=== PATIENT | male | born 1960 | race Caucasian/White ===

== ENCOUNTER → 2017-06-24 11:17 | Outpatient (CLI) | payer BC, SELFPAY ==
[2017-06-24 12:31] LABS: Basophils % 0.4 % (0.1-2.0); Eosinophils # 0.1 K/mm3 (0.0-0.4); Hematocrit 50.6 % (42.0-52.0); Hemoglobin 17.1 g/dL (14.1-18.0); Lymphocytes # 1.9 K/mm3 (0.7-4.5); Lymphocytes % 18.8 K/mm3 (10-50); Mean Corpuscular HGB Conc 33.9 g/dL (31.8-35.4); Mean Corpuscular Hemoglobin 30.1 pg (27.0-31.2); Mean Platelet Volume 8.7 fl (7.4-10.4); Monocytes # 0.4 K/mm3 (0.1-1.0); Monocytes % 3.4 % (1.7-9.3); Neutrophils # 7.7 K/mm3 (1.8-7.8); Neutrophils % 76.4 % (37.0-80.0); Platelet Count 219 K/mm3 (142-424); Red Blood Count 5.69 M/mm3 (4.60-6.20); Red Cell Distribution Width 12.6 % (11.5-17.5); White Blood Count 10.1 K/mm3 (4.8-10.8)
[2017-06-24 14:06] LABS: Alanine Aminotransferase 31 U/L (12-78); Albumin Level 3.9 gm/dL (3.4-5.0); Albumin/Globulin Ratio 1.1 (1.1-1.8); Alkaline Phosphatase 95 U/L (46-116); Anion Gap 10.9 mEq/L (5-15); Aspartate Amino Transferase 22 U/L (15-37); Bilirubin,Total 0.3 mg/dL (0.2-1.0); Blood Urea Nitrogen 17 mg/dL (7-18); Carbon Dioxide 29 mmol/L (21.0-32.0); Chloride 103 mmol/L (98-107); Chol/HDL Ratio 2.8 (1-3.5); Cholesterol 184 mg/dL (140-200); Creatinine,Serum 0.81 mg/dL (0.70-1.30); Estimated Glomerular Filt Rate 99 ml/min (>60); GFR (African American) 119 ML/MIN (>60); Globulin 3.7 gm/dl (1.3-3.2); Glucose 97 mg/dL (74-106); HDL Cholesterol 65 mg/dL (27-67); LDL Cholesterol 102 mg/dL (0-130); Potassium 4.9 mmoL/L (3.5-5.1); Sodium 138 mmol/L (136-145); Thyroid Stimulating Hormone 0.61 uIU/ml (0.358-3.740); Total Protein,Serum 7.6 gm/dL (6.4-8.2); Triglycerides 84 mg/dL (30-200); VLDL Cholesterol 17 mg/dL (0-40)
[2017-06-27 06:23] LABS: Vitamin B12 1254 pg/mL (232-1245); Vitamin D 25 Hydroxy 38.4 ng/mL (30.0-100.0)
== END ==
PROVIDERS: PCP Nurse Practitioner Family; Visit Provider Nurse Practitioner Family
DX: R53.83 Other fatigue (principal); Z00.00 Encounter for general adult medical examination without abnormal findings
CPT/HCPCS: 36415; 80053; 80061; 82607; 82652; 84443; 85025

== ENCOUNTER → 2021-04-05 16:00 | Outpatient (CLI) | payer BC, SELFPAY ==
[2021-04-05 17:09] LABS: Alanine Aminotransferase 38 U/L (12-78); Albumin/Globulin Ratio 1.4 (1.1-1.8); Alkaline Phosphatase 79 U/L (38-126); Anion Gap 10.5 mEq/L (5-15); Aspartate Amino Transferase 44 U/L (17-59); Bilirubin,Total 0.3 mg/dl (0.2-1.3); Blood Urea Nitrogen 15 mg/dl (9-20); Calcium 9.4 mg/dl (8.4-10.2); Carbon Dioxide 28 mmol/L (22.0-30.0); Chloride 104 mmol/L (98-107); Estimated Glomerular Filt Rate 115 ml/min (>60); GFR (African American) 139 ML/MIN (>60); Globulin 2.8 g/dL (1.3-3.2); Glucose 101 mg/dl (74-100); Potassium 4.5 mmoL/L (3.5-5.1); Sodium 138 mmol/L (136-145); Total Protein,Serum 6.8 g/dl (6.3-8.2)
[2021-04-05 17:13] LABS: Basophils % 0.8 % (0.1-2.0); Eosinophils # 0.2 K/mm3 (0.0-0.4); Eosinophils % 2.8 % (0.1-12.0); Hematocrit 47.3 % (42.0-52.0); Hemoglobin 16.2 g/dL (14.1-18.0); Lymphocytes # 2.1 K/mm3 (0.7-4.5); Lymphocytes % 36.9 % (10-50); Mean Corpuscular HGB Conc 34.4 g/dL (31.8-35.4); Mean Corpuscular Hemoglobin 29.8 pg (27.0-31.2); Mean Corpuscular Volume 86.8 fl (80-94); Mean Platelet Volume 9.5 fl (7.4-10.4); Monocytes # 0.4 K/mm3 (0.1-1.0); Monocytes % 6.1 % (1.7-9.3); Neutrophils % 53.4 % (37.0-80.0); Platelet Count 227 K/mm3 (142-424); Red Blood Count 5.45 M/mm3 (4.60-6.20); Red Cell Distribution Width 13.5 % (11.5-17.5); White Blood Count 5.6 K/mm3 (4.8-10.8)
[2021-04-05 17:39] LABS: Thyroid Stimulating Hormone 2.37 uIU/mL (0.465-4.68)
[2021-04-05 17:57] LABS: Vitamin B12 701 pg/mL (239-931)
== END ==
PROVIDERS: Visit Provider Nurse Practitioner Family
DX: R11.0 Nausea (principal); R19.7 Diarrhea, unspecified; R53.81 Other malaise
CPT/HCPCS: 36415; 80053; 82607; 84443; 85025

== ENCOUNTER → 2021-09-22 11:08 | Outpatient (CLI) | payer BC, SELFPAY ==
--- NOTE | 2021-09-22 11:15 | XR_ITS ---
FINAL REPORT CLINICAL HISTORY: RIGHT FOOT PAIN, punctured foot with piece of steel around big toe FINDINGS: RIGHT FOOT Three views of the right foot demonstrate no acute fracture or dislocation. There are moderate degenerative changes of the 1st MTP joint. The soft tissues are unremarkable. No foreign body is identified. IMPRESSION: No acute bony abnormality. No foreign body identified. Reviewed, Interpreted and Dictated by Jason Melton III, MD Transcribed by Tawny Escobedo Authenticated by Jason Melton III, MD on 09/22/2021 12:07:33 PM [facility]
== END ==
PROVIDERS: PCP Internal Medicine Adolescent Medicine; Visit Provider Nurse Practitioner Family
DX: Z01.812 Encounter for preprocedural laboratory examination (principal); Z11.52 Encounter for screening for COVID-19; Z12.11 Encounter for screening for malignant neoplasm of colon; M79.671 Pain in right foot
CPT/HCPCS: 73630; C9803; U0003; U0005

== ENCOUNTER 2021-09-24 07:10 | Day surgery (SDC) | payer BC, SELFPAY ==
[2021-09-22 11:48] VITALS: BMI 23.6
[2021-09-24] VITALS (7 sets, daily range): BP systolic 78–129; BP diastolic 50–79; PULSE 55–89; RESP 16–18; TEMP 36.2–36.3; O2SAT 93–97
--- NOTE | 2021-09-24 07:38 | P.PN_ITS ---
[facility] Anesthesia Checklist - Patient Identification Patient Identification: Arm Band - Structural Data Admitted From: Home Planned Operative Procedure/s: Colonoscopy Consent for Planned Operative Procedure(s) Verified: Yes - NPO Status Verified Time NPO: 03:00 (Prep) - Airway Assessment C-Spine Mobility Assessed: Yes TMJ Mobility Assessed: Yes Dentition: Poor Dentition - Neurological Assessment Level of Consciousness: Awake Hx Seizures: No Numbness or tingling in extremities: No - Anesthesia Plan Anesthesia Risk discussed: Yes Anesthesia Plan: Verified ASA Class: II Anesthesia Type: MAC [facility] History I have reviewed the patient's past medical history: Yes Medical History: Denies:: Cancer, Diabetes Mellitus Type 1, Diabetes Mellitus Type 2, Internal Pacemaker, MRSA, Seizures *Have you ever received a pneumonia vaccine?: No *Have you received a flu vaccine this season?: Yes Anesthesia experience/problems:: None Other Surgeries: No: Pacemaker Amputation: No Fractures: No - *Social History Last grade of school completed: 11th or 12th Smoking Status: Current every day smoker Tobacco Type: cigarettes # Packs/Day (cigarettes): 1 Alcohol Intake: current Alcohol Intake Frequency:: a few times a month Substance Use Type: denies use *Occupational Status:: employed Housing: house Household Members: significant other *Travel in the last 8 weeks: None Family Hx:: Unable to obtain
--- NOTE | 2021-09-24 09:04 | HMH.SCOPE ---
- Procedure: Date: 09/24/21 Patient Date of :: 1960 Procedure Performed:: Total colonoscopy to terminal ileum with numerous polypectomy using hot snare, cold snare, and biopsy Indications:: Patient is a very pleasant 60-year-old male from alcohol with referred by Loan Das for initial screening colonoscopy. Performing Provider:: Jason Vega MD Referring Provider:: Loan Das Sedation:: MAC sedation Procedure:: Consent was obtained and patient was taken to endoscopy procedure room. He was positioned in lateral decubitus position. Adequate intravenous sedation was achieved with anesthesia titration of propofol. Digital examination was performed which revealed normal sphincter tone. Prostate was unremarkable. Variable stiffness Olympus colonoscope was inserted via the anus. It was advanced to the cecum. Ileocecal valve and appendiceal orifice were clearly identified. Colonoscope was advanced a short distance into the terminal ileum which appeared grossly normal. Colonoscope was withdrawn into the cecum. It was slowly withdrawn through the colon with careful surveillance. Colonic preparation was good and visualization was good. Near the hepatic flexure there was a large, estimated approximately 30 mm, polyp which was removed with hot snare. This required maceration with Dominguez net for retrieval in pieces. Francisca ink was injected submucosally in the region of the site to armando the area for future reference. In proximal transverse colon there was a small polyp removed with cold snare and additional with biopsy. Distal transverse colon is tiny polyp removed with biopsy forceps. In the descending colon there were a couple of small polyps removed with cold snare. In the sigmoid colon there was a small polyp removed with cold snare. At the rectosigmoid region there were multiple hyperplastic appearing polyps, larger were removed with biopsy forceps. Near the rectosigmoid region there was a large pedunculated polyp, irregular, removed with hot snare, measured approximately 15 to 20 mm. In the rectum there were multiple hyperplastic appearing polyps removed with biopsy forceps. Retroflexion revealed no evidence of any pathologic internal hemorrhoids. Please note that there was some scattered rare diverticulosis. Colonoscope was withdrawn. Findings:: Numerous polyps as noted above. He had approximately 17 polyps. Most notable was the large, possibly measuring up to 30 mm, polyp at the hepatic flexure and approximately 15 to 20 mm polyp in the rectosigmoid region. He had rare diverticulosis. Recommendations:: Follow-up colonoscopy pending pathology, likely within 2 years. Complications:: None immediately apparent Estimated blood obtained (mL): 3
== END 2021-09-24 10:05 | disposition home or self-care (01) ==
LOC: OUTP 07:12
PROVIDERS: PCP Nurse Practitioner Family; Visit Provider Surgery
PROC: 0DJD8ZZ Inspection of Lower Intestinal Tract, Via Natural or Artificial Opening Endoscopic (ICD-10-PCS; CPT 45385; principal; 2021-09-24 08:30)
DX: Z12.11 Encounter for screening for malignant neoplasm of colon (principal); K63.5 Polyp of colon; K57.30 Diverticulosis of large intestine without perforation or abscess without bleeding; Z88.6 Allergy status to analgesic agent; Z79.899 Other long term (current) drug therapy
CPT/HCPCS: 45385; 45380; J2704

== ENCOUNTER → 2023-03-27 08:30 | Outpatient (CLI) | payer OTHER, SELFPAY ==
--- NOTE | 2023-03-27 09:07 | XR_ITS ---
FINAL REPORT CLINICAL HISTORY: dropped steel on foot 1.5 yrs ago. Has know near 1st digit. Pain and swelling. FINDINGS: AP, oblique and lateral views of the right foot were obtained. There is no acute fracture or dislocation. There is degenerative joint disease, most pronounced at the first MTP joint. Soft tissues are normal. IMPRESSION: No acute osseous abnormality of the right foot. Reviewed, Interpreted and Dictated by Brisa Hargrove MD Transcribed by Leatha Ohara Authenticated and [facility]
== END ==
PROVIDERS: PCP Internal Medicine Adolescent Medicine; Visit Provider Podiatrist
DX: M79.671 Pain in right foot (principal)
CPT/HCPCS: 73630

== ENCOUNTER 2023-04-07 06:29 | Day surgery (SDC) | payer OTHER, SELFPAY ==
[2023-04-04 17:08] VITALS: BMI 23.3
[2023-04-07] VITALS (7 sets, daily range): BP systolic 75–130; BP diastolic 52–80; PULSE 76–97; RESP 14–18; TEMP 36.2–36.4; O2SAT 95–97
--- NOTE | 2023-04-07 07:11 | P.PNANES_ITS ---
[facility] Disclaimer: The information contained in this section may have been updated after the patient was seen, as this information can be updated by other users. 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 caffeine: Yes [facility] Anesthesia Checklist Patient Identification Patient Identification: Arm Band and Verbal (Name & ) Structural Data Admitted From: Home Planned Operative Procedure/s: Colonoscopy Consent for Planned Operative Procedure(s) Verified: Yes NPO Status Verified Time NPO: 00:00 Additional verifications Anesthesia Reactions: No Airway Assessment Mallampati Score:: Class III C-Spine Mobility Assessed: Yes TMJ Mobility Assessed: Yes Dentition: Poor Dentition Neurological Assessment Level of Consciousness: Awake Hx Seizures: No Numbness or tingling in extremities: No Anesthesia Plan Anesthesia Risk discussed: Yes Anesthesia Plan: Verified ASA Class: II Anesthesia Type: MAC
--- NOTE | 2023-04-07 07:56 | HMH.SCOPE ---
Procedure: Date: 04/07/23 Patient Date of :: 1960 Procedure Performed:: Total colonoscopy to terminal ileum with polypectomy using cold snare and biopsy forceps Indications:: Patient is a 62-year-old male whom I had performed initial screening colonoscopy on in September 2021 at which time he was found to have numerous polyps. He did have numerous hyperplastic polyps. However he had a tubulovillous adenoma at the hepatic flexure measuring 30 mm and a tubulovillous adenoma in the rectosigmoid measuring 20 mm. There were an additional 6 tubular adenomas. Performing Provider:: Jason Vega MD Referring Provider:: Michael Skinner MD Sedation:: MAC sedation Procedure:: Patient history was obtained and appropriate physical examination was performed. Patient's medications and allergies were reviewed. Informed consent was obtained after explaining the benefits, alternatives, and risks of the procedure including, but not limited to, bleeding, perforation, missed lesions, and adverse reaction to anesthesia medications. Patient was transported to endoscopy procedure room. Patient was connected to monitoring devices. Throughout the procedure the patient's blood pressure, pulse, and oxygen saturations were monitored continuously. Patient identification and planned procedure were verified by the staff. Patient was positioned in lateral decubitus position. Digital anorectal exam was performed. Variable stiffness Olympus colonoscope was inserted and advanced under direct visualization to the cecum. Adequacy of the colonic preparation was noted. The colonoscope was advanced a short distance into the terminal ileum. The colonoscope was then slowly withdrawn while carefully examining the color, texture, anatomy, and integrity of the mucosoa circumferentially. Within the rectum retroflexion was performed. Colonoscope was then withdrawn. . Colonic preparation was good. Near the hepatic flexure there was a tiny adenomatous appearing polyp removed with cold snare. In the proximal transverse colon near the hepatic flexure there was a tiny polyp which appeared to be likely lymphoid aggregate. There was sigmoid diverticulosis. In the descending colon there was a subtle likely hyperplastic polyp or lymphoid aggregate removed with biopsy forceps. The rectosigmoid region there were numerous hyperplastic appearing polyps. Larger of these were sampled and removed with biopsy forceps. Retroflexion revealed some prolapsing internal hemorrhoids. . Findings:: Polyps as noted above Sigmoid diverticulosis Prolapsing hemorrhoids Recommendations:: Pending the pathology likely repeat colonoscopy in about 2 years given prior history Complications:: None immediately apparent Estimated blood obtained (mL): 1 Colonoscopy Component Colonoscopy Component Was a colonoscopy performed during today's procedure?: Yes Recommended follow up colonoscopy of at least 10 years?: No If no, follow up colonoscopy recommended in ___ years?: See above Reason for not recommending >/= 10 yr follow-up interval?: See above
--- NOTE | 2023-04-07 08:06 | SUR.PHASEII ---
[id number] [facility] DIRECTOR [employer] SALES aware of patient bp.
== END 2023-04-07 08:35 | disposition home or self-care (01) ==
PROVIDERS: PCP Internal Medicine Adolescent Medicine; Visit Provider Surgery
PROC: 0DJD8ZZ Inspection of Lower Intestinal Tract, Via Natural or Artificial Opening Endoscopic (ICD-10-PCS; CPT 45385; principal; 2023-04-07 07:30)
DX: Z12.11 Encounter for screening for malignant neoplasm of colon (principal); Z86.010 Personal history of colon polyps; K57.30 Diverticulosis of large intestine without perforation or abscess without bleeding; K64.8 Other hemorrhoids; D12.3 Benign neoplasm of transverse colon; D12.4 Benign neoplasm of descending colon; D12.7 Benign neoplasm of rectosigmoid junction
CPT/HCPCS: 45385; 45380; J2704

== ENCOUNTER 2023-06-17 12:14 | Outpatient (CLI) | payer OTHER, SELFPAY ==
--- NOTE | 2023-06-17 12:27 | XR_ITS ---
PROCEDURE INFORMATION: Exam: XR Bilateral Sacroiliac Joints Exam date and time: 06/17/2023 12:30 PM Age: 62 years old Clinical indication: Pain; Lumbago; With sciatica; Right TECHNIQUE: Imaging protocol: XR bilateral XR of the sacroiliac joints. Views: 3 or more views. COMPARISON: CR XR HIP RT 2-3V W/PELVIS 06/17/2023 12:30 PM FINDINGS: Bones/joints: Normal. No acute fracture. Soft tissues: Normal. IMPRESSION: No acute findings.
--- NOTE | 2023-06-17 12:27 | XR_ITS ---
PROCEDURE INFORMATION: Exam: XR Right Hip Exam date and time: 06/17/2023 12:30 PM Age: 62 years old Clinical indication: Hip pain; Right hip TECHNIQUE: Imaging protocol: Radiologic exam of the right hip. Views: 2 or 3 views hip with pelvis when performed. COMPARISON: CR XR LUMBAR SPINE 2-3V 06/17/2023 12:30 PM FINDINGS: Bones/joints: Mild narrowing right hip joint. Soft tissues: Unremarkable. IMPRESSION: 1. Mild degenerative osteoarthritis right hip joint. 2. No evidence of acute osseous injury.
--- NOTE | 2023-06-17 12:28 | XR_ITS ---
PROCEDURE INFORMATION: Exam: XR Lumbosacral Spine Exam date and time: 06/17/2023 12:30 PM Age: 62 years old Clinical indication: Low back pain TECHNIQUE: Imaging protocol: Radiologic exam of the lumbosacral spine. Views: 2 or 3 views. COMPARISON: CR XR HIP RT 2-3V W/PELVIS 06/17/2023 12:30 PM FINDINGS: Bones/joints: Lumbar spondylosis with multilevel disc degeneration. Degree of disc space narrowing most pronounced at L4-L5 and L5-S1. Soft tissues: Unremarkable. IMPRESSION: Lumbar spondylosis with multilevel disc degeneration.
== END 2023-06-17 23:59 ==
LOC: RAD 12:15
PROVIDERS: PCP Internal Medicine Adolescent Medicine; Visit Provider Internal Medicine Adolescent Medicine
DX: M25.551 Pain in right hip (principal); M54.31 Sciatica, right side; M54.50 Low back pain, unspecified
CPT/HCPCS: 72100; 72202; 73502

== ENCOUNTER 2023-06-21 10:41 | Emergency (ER) | payer OTHER, SELFPAY ==
[2023-06-21 10:41] VITALS: BP 173/91; PULSE 97; RESP 18; TEMP 36.8; O2SAT 99; BMI 22.8
[2023-06-21 11:00] VITALS: BP 142/82; PULSE 79; RESP 20; O2SAT 97
--- NOTE | 2023-06-21 11:02 | PC.NURSE ---
DR FRYE AT BEDSIDE
--- NOTE | 2023-06-21 11:07 | CT_ITS ---
FINAL REPORT TECHNIQUE: Axial images through the pelvis were performed by computed tomography. This study was performed with techniques to keep radiation doses as low as reasonably achievable (ALARA). Individualized dose reduction techniques using automated exposure control or adjustment of mA and/or kV according to the patient's size were employed. CLINICAL HISTORY: R sided sciatica, severe, prior injury FINDINGS: There is no evidence of fracture or bony destruction. No significant degenerative changes identified. IMPRESSION: Unremarkable exam. Reviewed, Interpreted and Dictated by Judy Nguyễn MD Transcribed by Holley Valle Authenticated and [facility]
--- NOTE | 2023-06-21 11:07 | CT_ITS ---
FINAL REPORT TECHNIQUE: Thin section axial CT images with coronal and sagittal reformats were performed. This study was performed with techniques to keep radiation doses as low as reasonably achievable (ALARA). Individualized dose reduction techniques using automated exposure control or adjustment of mA and/or kV according to the patient''s size were employed. CLINICAL HISTORY: pain, remote crush injury FINDINGS: There are significant degenerative changes of the 1st metatarsophalangeal joint. Cortical calcifications are seen along the dorsal metatarsophalangeal joint, could represent joint bodies measuring up to 10 mm. There is cystic change at the base of the 4th metatarsal abutting the tarsometatarsal joint, probably sequela of degenerative change. No acute fracture or subluxation is identified. IMPRESSION: Chronic appearing findings. Reviewed, Interpreted and Dictated by Judy Nguyễn MD Transcribed by Holley Valle Authenticated and . [facility]
--- NOTE | 2023-06-21 11:07 | CT_ITS ---
FINAL REPORT TECHNIQUE: Axial imaging of the lumbar spine was obtained without contrast. Reformatted images were also obtained and reviewed.This study was performed with techniques to keep radiation doses as low as reasonably achievable, (ALARA). Individualized dose reduction techniques using automated exposure control or adjustment of mA and/or kV according to the patient's size were employed. CLINICAL HISTORY: R sided sciatica, severe, prior injury FINDINGS: There is no acute fracture or subluxation. The vertebra are normal height. There is no malalignment. Facets are properly aligned. Prevertebral soft tissues unremarkable. T12-L1: Unremarkable. L1-2: Unremarkable. L2-3: Moderate annular disc bulge with mild central canal stenosis. L3-4: Moderate annular disc bulge with mild central canal stenosis. L4-5: Moderate annular disc bulge with facet overgrowth. There is moderate central canal stenosis and moderate bilateral neuroforaminal narrowing. L5-S1: Moderate right paracentral disc protrusion which contacts the right S1 nerve root. There is mild bilateral neuroforaminal narrowing. IMPRESSION: Multilevel disc abnormalities as above. Consider MRI for further evaluation. Reviewed, Interpreted and Dictated by Judy Nguyễn MD Transcribed by Leatha Ohara Authenticated and [facility]
--- NOTE | 2023-06-21 11:10 | HMH.EDGENADL ---
Discharge Plan Disposition Patient Disposition: Home, Self-Care Condition: Good Prescriptions Prescriptions: New lidocaine [Lidoderm] 5 % adhesive patch,medicated 1 patch topical DAILY Qty: 15 0RF Rx Instructions: leave on most painful area for up to 12 hrs prednisone 50 mg tablet 50 mg PO DAILY 5 Days Qty: 5 0RF No Action fluticasone propionate 120 SPR/BOT bottle 1 spr NS DAILY Referrals Follow up/Referrals: Michael Skinner MD [Primary Care Provider] - See instructions Activity Restrictions/Add. Instructions Additional Instructions/Restrictions: You were evaluated in the emergency department today. Please keep outpatient follow-up with your label rewinder. Also follow-up with your primary care provider. supervisor power reactor prescriptions and use them as needed for pain. You may also take Tylenol, ibuprofen, and the Robaxin that you already have at home. Return to the emergency department for new or worsening symptoms. Clinical Impressions Clinical Impression: Right sided sciatica, Chronic pain in right foot Discharge ED Provider: Miladys Carrillo General Adult HPI General Chief complaint: PAIN Stated complaint: Pain in R leg and foot Time Seen by Provider: 06/21/23 10:51 Mode of Arrival: Wheelchair Source of Information: Patient Limitations: No Limitations Description of Symptoms (Recalled from ER Triage Doc. by RN): Patient states he has been having issues with right foot and leg for over a year after dropping a piece of steel on right foot. Patient reports since last Monday the pain has gotten worse and went into hip. States he is followed by Dr Lawrence and is potentially going to need surgery. 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 He also states that his big toe feels as if it is numb. He dropped a large piece of steel on his right foot over a year ago and has had pain ever since. He notes that initially he was told x-rays were negative, however he saw podiatry in March and was advised that he has a chronic fracture. He is potentially going to need surgery, but they are awaiting an outpatient CT scan. On medical record review, they have tried to order this, but insurance issues have gotten in the way. They require the CT for surgical planning. Patient notes that he has been walking unusually given his foot pain, which he feels is causing stress on his right hip. He had x-rays of his hip done on 06/17/2023 which did not demonstrate any acute fracture on my independent interpretation. He denies any recent falls or injuries. He has been on Robaxin at home with no significant improvement in his pain. It became intolerable today, so he came in for evaluation. Related Data Home Medications Medication Instructions Recorded Confirmed fluticasone propionate 50 1 spr intranasal DAILY allergies 09/24/21 03/27/23 mcg/actuation nasal spray,suspension Previous Rx's Medication Instructions Recorded lidocaine 5 % topical patch 1 patch topical DAILY #15 ea 06/21/23 (Lidoderm) prednisone 50 mg tablet 50 mg PO DAILY 5 days #5 tabs 06/21/23 Allergies Allergy/AdvReac Type Severity Reaction Status Date / Time codeine Allergy Unknown Verified 04/04/23 17:08 [facility] Disclaimer: The information contained in this section may have been updated after the patient was seen, as this information can be updated by other users. 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 caffeine: Yes ROS Obtained: Yes All systems reviewed & no additional complaints except as documented Physical Exam General General appearance: alert and in no apparent distress Head Head exam: atraumatic and normocephalic Eye Eye exam: Present normal appearance, PERRL and EOMI ENT ENT exam: Present normal exam, normal oropharynx, mucous membranes moist and normal external ear exam Neck Neck exam: Present normal inspection, full ROM and trachea midline; Absent tenderness Chest Chest inspection: Present normal inspection and symmetric chest wall rise; Absent tenderness Respiratory Respiratory exam: Present normal lung sounds bilaterally; Absent respiratory distress, wheezes, stridor or accessory muscle use Cardiovascular Cardiovascular exam: Present regular rate and normal rhythm Abdominal Exam Abdominal exam: Present soft; Absent distention, tenderness or guarding Extremities Exam Extremities exam: Present full ROM, tenderness (Tenderness to palpation of the right first MTP joint. All compartments soft. Neurovascularly intact distally. Positive straight leg raise) and normal capillary refill; Absent edema Back Exam Back exam: Present full ROM, paraspinal tenderness and straight leg raise (R); Absent tenderness Neurological Exam Neurological exam: Present alert, oriented X3, CN II-XII intact and normal gait; Absent motor sensory deficit Psychiatric Psychiatric exam: Present normal affect and normal mood Skin Skin exam: Present warm and dry Medical Decision Making Medical Records Medical records reviewed: Yes I reviewed the patient's medical records. Jonah Inquiry Pt receiving controlled substance: No Vital Signs: 06/21/23 10:41 06/21/23 11:00 Temperature 98.2 F Temperature Source Oral Pulse Rate 79 Pulse Rate [Right] 97 H Respiratory Rate 18 20 Blood Pressure 142/82 H Blood Pressure [Right Arm] 173/91 H Blood Pressure Mean 113 Blood Pressure Mean [Right Arm] 118 Blood Pressure Source [Right Arm] Automatic Cuff 02 Sat by Pulse Oximetry 99 97 Oxygen Delivery Method Room Air Lab Data Lab results reviewed: Yes I reviewed the patient's lab results. Orders (Tests/Meds): ED MEDICATIONS Discontinued Medications Generic Name Dose Route Start Last Admin Trade Name Leia PRN Reason Stop Dose Admin Acetaminophen 1,000 mg 06/21/23 11:07 06/21/23 11:31 Acetaminophen 500mg Tab PO 06/21/23 11:08 1,000 mg ONCE ONE Administration Dexamethasone 10 mg 06/21/23 11:10 06/21/23 11:32 Dexamethasone 4mg Tablet PO 06/21/23 11:11 10 mg ONCE ONE Administration Diazepam 5 mg 06/21/23 11:07 06/21/23 11:32 Diazepam 5mg Tablet PO 06/21/23 11:08 5 mg ONCE ONE Administration Ketorolac Tromethamine 30 mg 06/21/23 11:07 06/21/23 11:32 Ketorolac 30mg/Ml Vial IM 06/21/23 11:08 30 mg ONCE ONE Administration Lidocaine 1 each 06/21/23 11:14 06/21/23 11:31 Lidocaine 5% Transdermal Patch TP 06/21/23 11:15 1 each ONCE ONE Administration ORDERS Category Date Time Status CT bony pelvis Stat Cat Scan 06/21/23 11:[address] foot RT wo con Stat Cat Scan 06/21/23 11:[address] lumbar spine wo con Stat Cat Scan 06/21/23 11:07 Completed Medical Decision Narrative: In summary, this patient is a 62-year-old male presenting to the Emergency Department for evaluation of right hip/buttock pain radiating down his right leg in the setting of a chronic right foot fracture. Differential diagnoses considered include but are not limited to sciatica, disc herniation, lumbar radiculopathy, referred pain from fracture. Ruling out the most morbid conditions drove assessment. On exam, the patient is neurovascularly intact with good pulses distally. Sensation is intact as well. He does have tenderness palpation of the right first MTP joint, at the site of his chronic fracture. He also has positive straight leg raise on the right. I feel his pain today is most likely related to sciatica. No alarm symptoms to suggest spinal cord compression. Workup included CT lumbar spine, CT pelvis, and CT of the right foot. He was given oral Valium, IM Toradol, topical Lidoderm patch, oral Tylenol, and oral dexamethasone for symptomatic improvement. I independently interpreted CT scans prior to the radiologist read and noted no acute traumatic injury spinal cord compression. Please see their read for final interpretation. On reassessment, the patient is resting company with improved symptoms. At this time, I feel it is appropriate for discharge with continued outpatient follow-up with podiatry and his primary care provider. He was given strict return precautions, prescriptions for Lidoderm patches and prednisone for symptomatic improvement, and he was discharged in stable condition after all questions were answered. Critical Care Critical Care Time Critical Care Time: No
[2023-06-21] MEDS: LIDOCAINE 5% TRANSDERMAL PATCH 1 EACH TP (11:31)
[2023-06-21] MEDS: ACETAMINOPHEN 500MG TAB 1000 MG PO (11:31)
[2023-06-21] MEDS: DEXAMETHASONE 4MG TABLET 10 MG PO (11:32)
[2023-06-21] MEDS: diazePAM 5MG TABLET 5 MG PO (11:32)
[2023-06-21] MEDS: KETOROLAC 30MG/ML VIAL 30 MG IM (11:32)
--- NOTE | 2023-06-21 13:30 | PC.NURSE ---
DR FRYE AT BEDSIDE TO UPDATE PT
--- NOTE | 2023-06-21 14:45 | PC.NURSE ---
DR FRYE AT BEDSIDE TO UPDATE PT AND FAMILY
[2023-06-21 14:54] VITALS: BP 137/80; PULSE 80; RESP 18; TEMP 36.7; O2SAT 99
== END 2023-06-21 14:55 | disposition home or self-care (01) ==
PROVIDERS: Emergency Provider Emergency Medicine; PCP Internal Medicine Adolescent Medicine
DX: M54.31 Sciatica, right side (principal); M25.551 Pain in right hip; M79.604 Pain in right leg; M79.671 Pain in right foot; G89.29 Other chronic pain; F17.210 Nicotine dependence, cigarettes, uncomplicated
CPT/HCPCS: 72131; 72192; 73700; 96372; 99285

== ENCOUNTER 2023-06-29 13:01 | Outpatient (CLI) | payer OTHER, SELFPAY ==
--- NOTE | 2023-06-29 13:10 | ECG_ITS ---
APPROVED REPORT Exam: Resting ECG HR:71 bpm ECG Measurements Heart Rate 71 AXES TN 144 P 56 QRSd 85 QRS 38 QT 364 T 50 QTc 387 Conclusion SINUS RHYTHM NORMAL ECG UNCONFIRMED REPORT Electronically signed by : Michael Skinner MD 07/01/2023 06:35:57
--- NOTE | 2023-06-29 13:18 | XR_ITS ---
FINAL REPORT CLINICAL HISTORY: preoperative testing, h/o tobacco use FINDINGS: 2 views of the chest were obtained . The heart is normal in size. The mediastinum is within normal limits. The lungs are clear. There is no pneumothorax. Osseous structures are unremarkable. IMPRESSION: No acute cardiopulmonary process. Reviewed, Interpreted and Dictated by Jason Melton III, MD Transcribed by Leatha Ohara Authenticated and [facility]
[2023-06-29 14:25] LABS: Basophils % 0.3 % (0.1-2.0); Eosinophils # 0.3 K/mm3 (0.0-0.4); Eosinophils % 3.5 % (0.1-12.0); Hematocrit 46.4 % (42.0-52.0); Hemoglobin 15.5 g/dL (14.1-18.0); Lymphocytes # 2.6 K/mm3 (0.7-4.5); Lymphocytes % 27.2 % (10-50); Mean Corpuscular HGB Conc 33.5 g/dL (31.8-35.4); Mean Corpuscular Hemoglobin 29.2 pg (27.0-31.2); Mean Corpuscular Volume 87.2 fl (80-94); Mean Platelet Volume 9.1 fl (7.4-10.4); Monocytes # 0.5 K/mm3 (0.1-1.0); Monocytes % 5.1 % (1.7-9.3); Neutrophils # 6.2 K/mm3 (1.8-7.8); Platelet Count 213 K/mm3 (142-424); Red Blood Count 5.32 M/mm3 (4.60-6.20); Red Cell Distribution Width 13.1 % (11.5-17.5); White Blood Count 9.7 K/mm3 (4.8-10.8)
[2023-06-29 15:16] LABS: Alanine Aminotransferase 27 U/L (12-78); Albumin Level 3.6 g/dl (3.5-5.0); Albumin/Globulin Ratio 1.4 (1.1-1.8); Alkaline Phosphatase 63 U/L (38-126); Anion Gap 10.4 mEq/L (5-15); Aspartate Amino Transferase 24 U/L (17-59); Bilirubin,Total 0.3 mg/dl (0.2-1.3); Blood Urea Nitrogen 18 mg/dl (9-20); Calcium 9.2 mg/dl (8.4-10.2); Carbon Dioxide 27 mmol/L (22.0-30.0); Chloride 107 mmol/L (98-107); Estimated Glomerular Filt Rate 98 ml/min (>60); GFR (African American) 119 ML/MIN (>60); Globulin 2.6 g/dL (1.3-3.2); Glucose 93 mg/dl (74-100); Potassium 4.4 mmoL/L (3.5-5.1); Sodium 140 mmol/L (136-145); Total Protein,Serum 6.2 g/dl (6.3-8.2)
[2023-07-08 21:49] LABS: 1,25 Dihydroxy Vitamin D <10 pg/mL (.); 1,25-Dihydroxy, Vitamin D-2 <10 pg/mL (.); 1,25-Dihydroxy, Vitamin D-3 <10 pg/mL (.)
[2023-07-10 14:54] LABS: Cotinine 275.4; Nicotine 28.5
== END 2023-06-29 23:59 ==
LOC: LAB 13:03
PROVIDERS: PCP Internal Medicine Adolescent Medicine; Visit Provider Podiatrist
DX: Z01.818 Encounter for other preprocedural examination (principal); E55.9 Vitamin D deficiency, unspecified; Z79.899 Other long term (current) drug therapy
CPT/HCPCS: 36415; 71046; 80053; 80323; 82652; 85025; 93005

== ENCOUNTER 2023-07-06 05:46 | Day surgery (SDC) | payer OTHER, SELFPAY ==
[2023-07-04 12:21] VITALS: BMI 22.8
[2023-07-06] VITALS (9 sets, daily range): BP systolic 115–141; BP diastolic 65–84; PULSE 70–88; RESP 16–18; TEMP 36.4–37.1; O2SAT 94–97
[2023-07-06] MEDS: LACTATED RINGERS 1000ML 1,000 ML 100 ML IV (06:15)
[2023-07-06] MEDS: CEFAZOLIN SODIUM 1 GM in 0.9 % SODIUM CHLORIDE 50 ML IV (08:00)
--- NOTE | 2023-07-06 08:04 | P.PNANES_ITS ---
[facility] Disclaimer: The information contained in this section may have been updated after the patient was seen, as this information can be updated by other users. 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 caffeine: Yes [facility] Anesthesia Checklist Patient Identification Patient Identification: Arm Band Structural Data Admitted From: Home Planned Operative Procedure/s: 1st MPJ Fusion, Exostectomy Consent for Planned Operative Procedure(s) Verified: Yes Verified Documents: Surgical Consent and History and Physical NPO Status Verified Time NPO: 00:00 Additional verifications Anesthesia Reactions: No Hx Blood Transfusions: No Blood Transfusion Reaction: No Airway Assessment Mallampati Score:: Class II C-Spine Mobility Assessed: Yes TMJ Mobility Assessed: Yes Dentition: Poor Dentition (upper dentures removed) Neurological Assessment Level of Consciousness: Awake and Alert Anesthesia Plan Anesthesia Risk discussed: Yes Anesthesia Plan: Verified ASA Class: II Anesthesia Type: General w/block (Right Popliteal/Adductor Canal) Preoperative Comments Pre-Operative Comments: Pt describes Sciatic Nerve Pain that extends from his right foot up to his right hip. Risks/benefits of nerve block explained. Pt elects to continue with nerve block for postoperative pain.
--- NOTE | 2023-07-06 09:03 | XR_ITS ---
FINAL REPORT CLINICAL HISTORY: RT 1ST MPJ ARTHRODESIS ft: 0:18 0.31 mGy FINDINGS: FLUOROSCOPY LESS THAN 1 HOUR HISTORY: Fluoroscopy guidance. Fluoroscopic guidance was provided for right first MPJ arthrodesis. 2 spot films were obtained. A total of 0:18 minutes of fluoroscopy time were used. Total DAP: 0.31 mGy IMPRESSION: As above. Reviewed, Interpreted and Dictated by Jason Melton III, MD Transcribed by Rachael Mata Authenticated and [facility]
--- NOTE | 2023-07-06 09:30 | XR_ITS ---
FINAL REPORT CLINICAL HISTORY: Post op right 1st MPJ AD COMPARISON: 03/27/2023 FINDINGS: RIGHT FOOT: Three views of the right foot were obtained. There are interval postoperative changes from fusion of the first MTP. The screw plate and multiple screws are present. The splint obscures detail. There is no acute fracture or dislocation. The joint spaces are intact. There is no soft tissue abnormality. IMPRESSION: Postoperative changes. Reviewed, Interpreted and Dictated by Jason Melton III, MD Transcribed by Rachael Mata Authenticated and [facility]
--- NOTE | 2023-07-06 09:36 | EXP.ANES.I ---
[facility] Anesthesia Record Part I Anesthesia Record I Intake, IV Amount: 1,100 Hydration: Adequate Estimated blood loss (mL): 5 Urine output (mL): 0 Blood Products used (#): none Blood Pressure: 135/72 SaO2: 95 Pulse Rate: 78 Airway Patency: Patent Respiratory Rate: 16 Temperature: 97.5 F Patient is:: Drowsy and Stable Stable to PACU at:: 09:30
--- NOTE | 2023-07-06 09:55 | EXP.OP.NOTE ---
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 History of first metatarsal undiagnosed fracture nonunion. Bony exostosis noted to the dorsal aspect of the first metatarsal. The first metatarsal head has significant cartilage damage with other 70% of the joint with some cartilage damage. Base of the proximal phalanx head spurring and cartilage damage as well. No signs of infection. Some limited ankle range of motion consistent with gastrocnemius equinus. Operative note:: On this date and time patient was deemed an appropriate surgical candidate. With informed consent signed, the patient was taken to the operating theater after regional popliteal, adductor canal nerve block by anesthesia. Patient was positioned supine. General anesthesia was induced. IV Ancef given. Tourniquet was applied to the right mid-calf @225mmHg. The right lower extremity was prepped and draped in normal sterile fashion. Right gastrocnemius recession: A linear incision was mapped out over the posterior medial leg. Layered dissection carried down to the peritenon overlying the gastrocnemius muscle, with care taken to maintain surgical hemostasis and retract neurovascular structures. The peritenon was transected and preserved for later closure. The gastroc was identified and utilizing a 15 blade a Joseph transverse incision was made while the foot was being dorsiflexed and the tendon was released. Good reduction of the equinus deformity was noted. It was flushed with normal sterile saline. 3-0 Vicryl was used to reapproximate the peritenon and subcutaneous tissue. 4-0 Monocryl was used to close subcuticular tissue in a running fashion. Right foot autograft bone harvest: Attention was directed to the first MPJ where an incision was mapped out. Full-thickness dissection with care to maintain surgical hemostasis to safely retract neurovascular structures. There was significant bony exostosis noted over the first metatarsal with a loose free fragment of bone. It was excised in total and sent to pathology as specimen. A piece of bone from previous fracture was removed and harvested as there was no cartilage. The cancellous bone was saved to use as autograft for the fusion site. Abnormal spurring on the first metatarsal and exostosis noted from the base of the proximal phalanx. Right foot exostectomy: Attention was directed distally to the HIPJ, where ronguer and power rasp was used to remove dorsal spurring from distal phalanx and first metatarsal. Right foot excision/curettage of metatarsal bone cyst with allograft: After removal of the exostosis and bony spurs, the dorsal medial aspect of the metatarsal was noted to have a bone cyst. Curette used to remove the bone cyst which was noted to be about 0.75 cm round. Some allograft bone fibers were then inserted into the cyst site prior to the first MPJ fusion. Right first MPJ arthrodesis: The tourniquet was inflated at 225 mmHg. There was severe arthritic changes noted with wearing down of the cartilage on both the metatarsal head and proximal phalanx. Dorsal as well as medial, lateral spurring noted. Sesamoids were also noted to be arthritic. Soft tissue surrounding the first MPJ was released. A McGlamry elevator was used to pass underneath the metatarsal heads releasing more of the contracture. Utilizing hand instrumentation in the form of ronguer, the osteophytes were removed and some of the spurs were resected. Next utilizing reamers the base of the proximal phalanx and the metatarsal head were prepared. The remaining portion of the cartilage was removed. The subchondral plate was fenestrated utilizing 1.6mm drill. Joint was prepped down to the level of good healthy cancellous bleeding bone. Power rasp was used to smooth the joint and remaining spurring. The wound was flushed with copious amounts of saline. The autograft bone graft was then inserted into the joint. At this point, the joint was reduced and temporary fixation inserted. Position was checked under intra-op fluoroscopy. A 3.5 mm compression lag screw was inserted from distal medial to proximal lateral. Adequate compression noted. Remaining bone graft was then inserted into the joint. Vilex 1st MPJ locking plate was inserted in standard technique. 3.5mm screws x 2 were inserted distally into the proximal phalanx. This was followed by a 3.5mm intra-fragmentary compression screw to the proximal metatarsal, followed by 2 x 3.5mm screws. Good apposition and position was noted. X-ray confirmed position and hardware stable. The remaining portion of the allograft was packed around the fusion site. 15 blade was used to resect the redundant tissue dorsal medial. 2-0, 3-0 Vicryl was used to close deep and subcutaneous tissue in a running fashion. 3-0 Nylon was used to close skin. Skin cleansed. Application of posterior splint: The tourniquet was deflated after 70 mins and immediate hyperemic response was noted to the digits. The wounds were cleansed. Mastisol, Steri-Strips applied to the gastroc site. Xeroform, dry sterile dressing was then applied along with below knee posterior splint. The patient was awoken from anesthesia and transferred to recovery with vital signs stable and neurovascular status intact. Materials: Vilex anatomic 5 degree 1st MPJ plate and 3.5mm locking screws x4, 3.5mm non locking screw x1, 3.0mm partially threaded compression screw x 1, x x1 (5cc), 5cc [place] biomatrix Discharge/Plan: D/C home today when ready and vital signs stable. Patient is to maintain dressing clean dry and intact. Ice top of right foot and elevate on two pillows. Polar pack behind knee. NWB to the RLE with DME. Rx given for rolling knee scooter. Rx for Oxy, Gabapentin, Zofran, Motrin given. Recommend vitamin D supplement. Obtain post op films, right foot, 3 views. Follow up with me in 1 week. Tourniquet time (min): 70 Condition: stable Disposition: same day Specimens:: Right first MPJ bone Complications:: None
--- NOTE | 2023-07-07 13:06 | EXP.ANES.II ---
[facility] Anesthesia Record Part II Anesthesia Record Part II Discharge Time: 10:00 Destination: Surgical Day Care (OP Surgery) PACU nurse assessment reviewed?: Yes Patient Condition:: Good Anesthesia Complications:: None Swallowing reflex intact?: Yes Airway Patency: Patent Cyanosis?: No Blood Pressure: 133/72 SaO2: 97 Respiratory Rate: 18 Pulse Rate: 77 Temperature: 97.9 F Mental Status: Alert & Oriented Pain level:: 0 Nausea and/or vomitting:: None Intake, IV Amount: 0 Hydration: Adequate
[2023-07-07 13:07] VITALS: BP 133/72; PULSE 77; RESP 18; TEMP 36.6; O2SAT 97
== END 2023-07-06 10:20 | disposition home or self-care (01) ==
PROVIDERS: PCP Internal Medicine Adolescent Medicine; Visit Provider Podiatrist
PROC: (CPT 28750; principal; 2023-07-06 07:30)
DX: M19.171 Post-traumatic osteoarthritis, right ankle and foot (principal); M79.671 Pain in right foot; M20.21 Hallux rigidus, right foot; M76.61 Achilles tendinitis, right leg; M62.461 Contracture of muscle, right lower leg; Z86.39 Personal history of other endocrine, nutritional and metabolic disease; E55.9 Vitamin D deficiency, unspecified; F17.210 Nicotine dependence, cigarettes, uncomplicated; Z79.899 Other long term (current) drug therapy; M85.671 Other cyst of bone, right ankle and foot; M89.9 Disorder of bone, unspecified
CPT/HCPCS: 28750; 28122; 28104; 27687; 73620; 73630; 96374; C1713; C1762; C1776; J2405

== ENCOUNTER 2023-07-27 09:51 | Outpatient (CLI) | payer OTHER, SELFPAY ==
--- NOTE | 2023-07-27 09:56 | XR_ITS ---
FINAL REPORT CLINICAL HISTORY: Foot Pain COMPARISON: 03/27/2023 FINDINGS: RIGHT FOOT: Three views of the right foot were obtained. In the interval since the prior exam the patient is postop fusion of the first MTP joint. A plate and multiple orthopedic screws are present. No acute bony abnormalities are identified. There is no soft tissue abnormality. IMPRESSION: No acute bony abnormality. Interval fusion of the first MTP joint. Reviewed, Interpreted and Dictated by Jason Melton III, MD Transcribed by Nivia Knox Authenticated and . [facility]
== END 2023-07-27 23:59 ==
LOC: RAD 09:52
PROVIDERS: PCP Internal Medicine Adolescent Medicine; Visit Provider Podiatrist
DX: M79.671 Pain in right foot (principal); Z98.890 Other specified postprocedural states
CPT/HCPCS: 73630

== ENCOUNTER 2023-08-10 10:19 | Outpatient (CLI) | payer OTHER, SELFPAY ==
--- NOTE | 2023-08-10 10:23 | XR_ITS ---
FINAL REPORT CLINICAL HISTORY: Foot Pain COMPARISON: 07/27/2023 FINDINGS: Right foot Three views were obtained. There are postoperative changes from fusion of the 1st metatarsophalangeal. Findings are stable since previous. Mild degenerative changes are identified. No soft tissue abnormality is identified. IMPRESSION: Stable postoperative changes. Reviewed, Interpreted and Dictated by Jason Melton III, MD Transcribed by Holley Valle Authenticated and [facility]
== END 2023-08-10 23:59 ==
LOC: RAD 10:21
PROVIDERS: PCP Internal Medicine Adolescent Medicine; Visit Provider Podiatrist
DX: M79.671 Pain in right foot (principal)
CPT/HCPCS: 73630

== ENCOUNTER 2023-08-31 09:00 | Outpatient (RCR) | payer OTHER, SELFPAY ==
--- NOTE | 2023-08-18 19:12 | HMH.PTOPEV ---
PT Outpatient Evaluation Rehab PT Outpatient Evaluation Start: 08/18/23 18:43 Freq: Status: Active Protocol: Document 08/18/23 18:43 IGOR (Rec: 08/18/23 19:12 IGOR [id number]) E-signed By Noel Ortega, PT Outpatient Therapy Subjective History Subjective History Patient is a 62 year old male presenting to outpatient PT with reports of R post- surgical foot/ankle pain S/P MPJ fusion with gastroc resection. Sx date 07/06/23 ( 6w S/P). Patient reports that initial injury occurred approx 1 year ago when he dropped a large piece of steel on his foot. He initially had xray not indicating any damage, though he developed a bony callus at the fracture site causing progressive discomfort. No other comorbidities to report. New diagnosis of cancer in past 12 No months? Chief Complaint Pain,Spasms,Stiff,Swelling, Paresthesia,Weakness Symptom Type Throb Symptoms Relieved By Rest/Positioning,Ice Symptoms Aggravated By Standing,Physical Activity, Walking Prior Functional Limitations None Current Functional Limitations Housework,Standing,Recreation Activity,Walking,Stairs, Balance Symptom Description Constant but Variable Level of pain today (0-10) 2 Pain scale - at its best (0-10) 2 Pain scale - at its worst (0-10) 8 Ankle/Foot Eval Gait Observation General Gait Pattern Observation Antalgic Gait,Decrease Weight Bear (R) Assistive Device Ambulation Assistive Device None Palpation Tenderness right Ankle/Foot Palpation Findings Tenderness Ankle/Foot Palpation Overall Comment about surgical incisions/ gastroc/1st MTPJ 3/4 ROM Ankle/Foot Dorsiflexion w/Knee Extended -5 Active Range Motion (degrees) Ankle/Foot Plantar Flexion Active Range 46 of Motion (degrees) Ankle/Foot Eversion Active Range of WNL Motion (degrees) Ankle/Foot Inversion Active Range of 18 Motion (degrees) Ankle/Foot ROM Limitations Soft Tissue Tightness Great Toe Metatarsophalangeal Extension 3 Active Range Motion (degrees) Great Toe Metatarsophalangeal Flexion 1 Active Range of Motion (degrees) MMT Ankle Dorsiflexion Strength Grade 5 Normal Ankle Plantarflexion Strength Grade 5 Normal Foot Eversion Strength Grade 4- Good- Foot Inversion Strength Grade 4- Good- Special Tests Ankle Anterior Drawer Test Negative Right Talar Tilt Test Negative Right Foot Interdigital Neuroma Test Negative Right Lower Extremity Functional Index Activities Today, do you or would you have any difficulty at all with: a.Any of your usual work, housework or Moderate difficulty school activities b. Your usual hobbies, recreational or Moderate difficulty sporting activities c. Getting into or out of the bath A little bit of difficulty d. Walking between rooms A little bit of difficulty e. Putting on your shoes or socks A little bit of difficulty f. Squatting Moderate difficulty g. Lifting an object, like a bag of A little bit of difficulty groceries from the floor h. Performing light activities around A little bit of difficulty your home i. Performing heavy activities around Moderate difficulty your home j. Getting into or out of a car A little bit of difficulty k. Walking 2 blocks Quite a bit of difficulty l. Walking a mile Extreme difficulty or unable to perform activity m. Going up or down 10 stairs (about 1 Extreme difficulty or unable flight of stairs) to perform activity n. Standing for 1 hour Extreme difficulty or unable to perform activity o. Sitting for 1 hour No difficulty p. Running on even ground Extreme difficulty or unable to perform activity q. Running on uneven ground Extreme difficulty or unable to perform activity r. Making sharp turns while running fast Extreme difficulty or unable to perform activity s. Hopping Extreme difficulty or unable to perform activity t. Rolling over in bed No difficulty LEFI Score Lower Extremity Functional Index Score 35 Outpatient Therapy Assessment Impairments Problems/Impairmments Palpation Tenderness,Impaired Range of Motion,Impaired Strength,Impaired Endurance, Impaired Gait Pattern,Impaired Walking,Impaired Standing, Impaired Household Care, Impaired Stair Climbing, Impaired Incline Stepping, Impaired Stepping on Uneven Surface,Impaired Squatting, Impaired Bending,Impaired Recreational Activities, Impaired Work Activities, Impaired Balance,Subjective C/ O Pain Prognosis Rehab Potential Good Clinical Impression Consistent with Diagnosis Yes Short Term Goals Number of Weeks 2 Decrease Subjective C/O Pain Yes: 5/10 at worst Patient to be Ind w/ HEP Yes Commodity Specialist Goals Number of Weeks 4-6 Decreased Palpation Tenderness Yes: 1/4 Increase Range of Motion Yes: R foot/ankle WNL all planes - 1st MTP Increase Strength Yes: 5/5 all planes Increase Ability to Walk Yes: 30 min without difficulty Increase Ability to Stand Yes: Improve Ability to Climb Stairs Yes: 1 flight up/down without difficulty Improve LEFI Score Yes: >60 Outpatient Therapy Plan of Care Treatment Plan May Include Therapeutic Exercise Including Home Yes Exercise Program Manual Therapy Techniques Yes Neuromuscular Re-education Yes Therapeutic Activities to Return to Yes Previous Functional/Work Level Gait Training Yes ADL/Self Care Education Yes Dry Needling Yes Thermal Modalities Yes Electrical Stimulation Yes Ultrasound/Phonophoresis Yes Iontophoresis Yes Orthotics/Bracing/Splinting Yes Vasopneumatic Compression Pump Yes Massage Yes Manual Lymphatic Drainage Yes Wound Care Yes Eval/Re-Eval Yes Aquatic Therapy Yes Frequency Times per week 2 Duration Number of Weeks 4-6 Addendums This patient is a candidate for social No or vocational rehab? Patient/Guardian verbally acknowledges Yes understanding of treatment program and consents to further treatment? Patient/Guardian verbally acknowledges Yes understanding of diagnosis, prognosis and goals for treatment? Eval Complexity PT Charges 87157 - Moderate Complexity Shoulder/Elbow Eval Shoulder Objective Measurements Elbow Objective Measurements PHYSICIAN CERTIFICATION: I certify the specified therapy services for Doug Rodrigues (Andy) are required, authorized, and reviewed every 30 days.
== END 2023-08-31 10:20 | disposition home or self-care (01) ==
LOC: PT 09:00
PROVIDERS: Visit Provider Podiatrist
DX: R60.9 Edema, unspecified (principal); Z98.890 Other specified postprocedural states
CPT/HCPCS: 97010; 97014; 97035; 97110; 97140; 97163; G0283

== ENCOUNTER 2023-09-06 09:26 | Outpatient (CLI) | payer OTHER, SELFPAY ==
--- NOTE | 2023-09-06 09:33 | XR_ITS ---
FINAL REPORT CLINICAL HISTORY: postop surgery 07/06/23 pt is still having mild pain COMPARISON: 08/10/2023 FINDINGS: Right foot Three views were obtained. There are screw plate and multiple screws securing the 1st metatarsophalangeal joint. The hardware is unchanged. IMPRESSION: Postsurgical changes as above. Reviewed, Interpreted and Dictated by Saqib Fleming MD Transcribed by Holley Valle Authenticated and [facility]
== END 2023-09-06 23:59 ==
LOC: RAD 09:27
PROVIDERS: PCP Internal Medicine Adolescent Medicine; Visit Provider Podiatrist
DX: M79.671 Pain in right foot (principal); Z98.890 Other specified postprocedural states
CPT/HCPCS: 73630

== ENCOUNTER 2023-10-05 10:22 | Outpatient (CLI) | payer OTHER, SELFPAY ==
--- NOTE | 2023-10-05 10:27 | XR_ITS ---
FINAL REPORT CLINICAL HISTORY: foot pain COMPARISON: 09/06/2023 FINDINGS: RIGHT FOOT 3 views of the right foot were obtained. There is no acute fracture. There are postoperative changes from fusion of the first metatarsophalangeal joint with a screw plate and multiple screws. Mild degenerative changes are present. IMPRESSION: Stable postoperative and degenerative changes. Reviewed, Interpreted and Dictated by Jason Melton III, MD Transcribed by Isabelle Miller Authenticated and [facility]
== END 2023-10-05 23:59 | disposition home or self-care (01) ==
LOC: RAD 10:23
PROVIDERS: PCP Internal Medicine Adolescent Medicine; Visit Provider Podiatrist
DX: M79.671 Pain in right foot (principal); Z98.890 Other specified postprocedural states
CPT/HCPCS: 73630

== ENCOUNTER → 2023-11-30 07:45 | Day surgery (SDC) | payer OTHER, SELFPAY ==
[2023-11-30 07:57] VITALS: BMI 23.6
[2023-11-30 08:01] VITALS: BP 137/74; PULSE 70; RESP 18; TEMP 36.4; O2SAT 97; BMI 23.6
--- NOTE | 2023-11-30 09:27 | EXP.OP.NOTE ---
Date of procedure: 11/30/23 Pre-op Diagnosis:: Left anterior thigh/leg skin neoplasm (1.5 cm) Post-op Diagnosis:: Same Procedure performed:: Excision of 1.5 cm left anterior thigh/leg skin neoplasm Surgeon:: Jose Forrest MD Anesthesia: local Estimated blood loss (mL): 5 Operative findings:: Lesion excised in toto Operative note:: After informed consent was obtained the patient was taken to the procedure room. His left anterior thigh/leg was prepped and draped in a sterile fashion. After infiltration with local anesthetic an elliptical incision was made around the lesion. A combination of sharp dissection and electrocautery was utilized to transect through the deep subcutaneous tissue. The lesion was excised in toto and passed off for pathologic evaluation after being marked for margin (proximal short/medial long). Electrocautery was utilized to achieve hemostasis. Skin was reapproximated with 4-0 nylon in an interrupted mattress fashion. Dressings were applied and the patient was discharged home in good condition. Condition: stable Disposition: no change Specimens:: Left anterior thigh/leg skin neoplasm Complications:: No immediate
[2023-11-30 09:30] VITALS: BP 146/70; PULSE 59; RESP 18; TEMP 36.4; O2SAT 97
== END | disposition home or self-care (01) ==
PROVIDERS: PCP Internal Medicine Adolescent Medicine; Visit Provider Surgery
PROC: (CPT 11602; principal; 2023-11-30 09:00)
DX: C44.729 Squamous cell carcinoma of skin of left lower limb, including hip (principal)
CPT/HCPCS: 11602

== ENCOUNTER 2024-01-11 08:30 | Day surgery (SDC) | payer OTHER, SELFPAY ==
[2024-01-08 13:03] VITALS: BMI 22.8
[2024-01-11 08:39] VITALS: BP 134/75; PULSE 68; RESP 18; TEMP 36.3; O2SAT 98
[2024-01-11] MEDS: LIDOCAINE 1% 20ML MDV 20 ML (09:17)
--- NOTE | 2024-01-11 09:49 | P.OP_ITS ---
Date of procedure: 01/11/24 Pre-op Diagnosis:: Left lower extremity squamous cell carcinoma Post-op Diagnosis:: Same Procedure performed:: Re-excision of left lower extremity squamous cell carcinoma (5 x 2 cm) Surgeon:: Jose Forrest MD Anesthesia: local Estimated blood loss (mL): 10 Operative findings:: Lesion excised with at least 1 cm margin Operative note:: After informed consent was obtained the patient was taken to the procedure room. His left lower extremity was prepped and draped in sterile fashion at the site of prior excision. After infiltration with local anesthetic an elliptical incision made around the lesion. The lesion was excised in toto with at least a 1 cm margin and then passed off for pathologic evaluation after being marked for margin (short anterior/long proximal). Electrocautery was utilized to achieve h emostasis. Skin was then closed in an interrupted mattress fashion. Dressings were applied and the patient was discharged in stable condition. Condition: stable Disposition: no change Specimens:: Left lower extremity squamous cell carcinoma (re-excision) Complications:: No immediate
[2024-01-11] MEDS: BACITRACIN ZINC OINT 30GM TUBE 28 GM TP (09:58)
[2024-01-11 09:59] VITALS: BP 124/71; PULSE 59; RESP 18; TEMP 36.6; O2SAT 98
== END 2024-01-11 09:59 | disposition home or self-care (01) ==
PROVIDERS: PCP Internal Medicine Adolescent Medicine; Visit Provider Surgery
PROC: (CPT 11606; principal; 2024-01-11 09:30)
DX: C44.729 Squamous cell carcinoma of skin of left lower limb, including hip (principal)
CPT/HCPCS: 11606

== ENCOUNTER 2024-01-23 13:09 | Outpatient (CLI) | payer OTHER, SELFPAY ==
--- NOTE | 2024-01-23 13:16 | XR_ITS ---
FINAL REPORT CLINICAL HISTORY: Foot Pain COMPARISON: 10/05/2023 FINDINGS: Right foot Three views were obtained. There is no acute fracture or dislocation. There is fusion of the 1st metatarsophalangeal joint. There are mild degenerative changes. No soft tissue abnormality is identified. IMPRESSION: Degenerative and postsurgical changes. Reviewed, Interpreted and Dictated by Jason Melton III, MD Transcribed by Holley Valle Authenticated and [facility]
== END 2024-01-23 23:59 | disposition home or self-care (01) ==
PROVIDERS: PCP Internal Medicine Adolescent Medicine; Visit Provider Internal Medicine Adolescent Medicine
DX: M79.671 Pain in right foot (principal)
CPT/HCPCS: 73630

== ENCOUNTER 2024-04-02 10:19 | Day surgery (SDC) | payer OTHER, SELFPAY ==
[2024-03-29 13:03] VITALS: BMI 22.1
[2024-04-02 10:36] VITALS: BP 138/76; PULSE 75; RESP 18; TEMP 36.2; O2SAT 96
--- NOTE | 2024-04-02 10:38 | P.PCN_ITS ---
Procedure: Date: 04/02/24 Patient Date of :: 1960 Procedure Performed:: Colonoscopy Indications:: History of colon polyps Colonoscopy performed in September 2021 (Dr. Vega) revealed multiple adenomatous yolanda yps along with eight 3 cm tubulovillous adenoma of the hepatic flexure and a 2 cm tubulovillous adenoma of the rectosigmoid. Repeat colonoscopy in March 2023 (Dr. Vega) revealed scattered polyps. Performing Provider:: Jose Forrest MD Referring Provider:: . Sedation:: Monitored anesthesia care Procedure:: After informed consent was obtained the patient was taken to the endoscopy suite. Sedation ensued after the patient was transferred to the left lateral decubitus position. Pulse, blood pressure, and oxygen saturation were monitored throughout the procedure. Digital rectal exam revealed no significant abnormality. The colonoscope was placed in position. The entire colon was evaluated. The colonoscope was carefully removed and the patient was transferred to recovery in stable condition. Please see findings and specimens below for detail. Findings:: Bowel preparation moderate Mild scattered sigmoid diverticulosis Hemorrhoidal tags Hemorrhoidal cushions Moderate spasticity/lack of relaxation Moderate tortuosity Specimens:: None Recommendations:: Repeat colonoscopy in 2-3 years (likely to be scheduled with Dr. Vega) secondary to history of multiple complex polyps, moderate bowel preparation, spasticity/lack of relaxation, and tortuosity. Complications:: No immediate Estimated blood obtained (mL): 0 Colonoscopy Component Colonoscopy Component Was a colonoscopy performed during today's procedure?: Yes Recommended follow up colonoscopy of at least 10 years?: No If no, follow up colonoscopy recommended in ___ years?: (See above) Reason for not recommending >/= 10 yr follow-up interval?: (See above)
[2024-04-02] MEDS: 0.9 % SODIUM CHLORIDE 1000ML 1,000 ML 25 ML IV (10:40)
--- NOTE | 2024-04-02 10:41 | EXP.ANES.CKL ---
[facility] Disclaimer: The information contained in this section may have been updated after the patient was seen, as this information can be updated by other users. 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 Anesthesia Checklist Patient Identification Patient Identification: Arm Band, Family and Verbal (Name & ) Structural Data Admitted From: Home Planned Operative Procedure/s: Colonoscopy Consent for Planned Operative Procedure(s) Verified: Yes Verified Documents: Surgical Consent and History and Physical NPO Status Verified Time NPO: 07:30 Chart Verification Results Verified: CBC, BMP, ECG and Chest Xray Additional verifications Patient : No Anesthesia Reactions: No Hx Blood Transfusions: No Blood Transfusion Reaction: No Previous Colonoscopy: Yes Cardiovascular Assessment Heart Sounds: S1 & S2 Pulse Rhythm: Irregular Peripheral Edema: No Airway Assessment Mallampati Score:: Class II C-Spine Mobility Assessed: Yes (FROM demonstrated) TMJ Mobility Assessed: Yes Dentition: Good Dentition (Nothing loose per pt.) Neurological Assessment Level of Consciousness: Awake, Alert, Appropriate and Follows Commands Hx Seizures: No Numbness or tingling in extremities: No Anesthesia Plan Anesthesia Plan: Verified ASA Class: II Anesthesia Type: MAC
[2024-04-02 10:46] VITALS: O2SAT 99
[2024-04-02 11:18] VITALS: BP 114/75; PULSE 75; RESP 18; TEMP 36.2; O2SAT 96
[2024-04-02 11:28] VITALS: BP 137/72; PULSE 61; RESP 18; O2SAT 97
[2024-04-02 11:38] VITALS: BP 134/74; PULSE 61; RESP 18; O2SAT 97
[2024-04-02 11:48] VITALS: BP 129/72; PULSE 60; RESP 18; O2SAT 97
== END 2024-04-02 11:48 | disposition home or self-care (01) ==
PROVIDERS: PCP Internal Medicine Adolescent Medicine; Visit Provider Surgery
PROC: 0DJD8ZZ Inspection of Lower Intestinal Tract, Via Natural or Artificial Opening Endoscopic (ICD-10-PCS; CPT 45378; principal; 2024-04-02 11:30)
DX: K57.30 Diverticulosis of large intestine without perforation or abscess without bleeding (principal); K64.9 Unspecified hemorrhoids; Z09 Encounter for follow-up examination after completed treatment for conditions other than malignant neoplasm; Z86.0101 Personal history of adenomatous and serrated colon polyps; Z86.0109 Personal history of other colon polyps
CPT/HCPCS: 45378; J2704; J7030

== ENCOUNTER 2024-07-01 12:55 | Outpatient (CLI) | payer OTHER, SELFPAY ==
--- NOTE | 2024-07-01 12:58 | XR_ITS ---
FINAL REPORT CLINICAL HISTORY: Postoperative follow up COMPARISON: 01/23/2024 FINDINGS: RIGHT FOOT 3 views of the right foot were obtained. There is no acute fracture or dislocation. There are postoperative changes of fusion at the first MTP joint. Hardware is stable. There is no evidence of bony destruction. Visualized joint spaces are normally aligned. Soft tissues are unremarkable. IMPRESSION: Postoperative changes without acute bony abnormality. Reviewed, Interpreted and Dictated by Judy Nguyễn MD Transcribed by Leatha Ohara Authenticated and . [facility]
== END 2024-07-01 23:59 | disposition home or self-care (01) ==
LOC: RAD 12:56
PROVIDERS: PCP Internal Medicine Adolescent Medicine; Visit Provider Podiatrist
DX: M79.671 Pain in right foot (principal)
CPT/HCPCS: 73630